=== PATIENT | male | born 1990 | race Caucasian/White ===

== ENCOUNTER 2017-10-11 10:45 | Emergency (ER) | payer SELFPAY ==
[~2017-10-11] VITALS: Ht 177.8 cm; Wt 98.0 kg
[2017-10-11 10:46] VITALS: Ht 177.8 cm; Wt 98.0 kg
[2017-10-11] MEDS ORDERED: SODIUM CHLORIDE 0.9% 1000ML 1,000 ML IV STA (11:00)
[2017-10-11] MEDS ORDERED: ALBUT/IPRATROP 3MG/0.5MG NEB 3 ML VIAL INH STA (11:00)
[2017-10-11] MEDS ORDERED: KETOROLAC TROMETHAMINE 30 MG/ML VIAL IV STA (11:00)
--- NOTE | 2017-10-11 11:09 | EMERGENCY ROOM VISIT NOTE ---
History Report prepared by Tony: Krupa Manzanares Under the Supervision of: Dr. Rodrigo Frost M.D. First contact with patient: 10:54 Chief Complaint: FEVER Stated Complaint: COUGH,FEVER,DARK MUCUS,BODY ACHES History of Present Illness The patient is a 27 year old male who presents to the Emergency Room with complaints of a worsening illness for the past week. The patient states that his symptoms began with muscle pains in his neck and down his back. He states that his neck still feels sore. His pain is worsened with movement of his head. He reports that when he gets up and starts moving around he feels dizzy and develops a slight headache. He has been having a productive cough and fevers. He states that he is "drenched in sweat" whenever he wakes up in the morning. The patient denies any significant headaches and states that this is not the worst headache of his life. He has been alternating ibuprofen, Tylenol, and cold medications for his symptoms. He has not taken anything today. Source of History: patient Onset: 1 week ago Position: neck Quality: ache Timing: worsening Modifying Factors (Worsening): movement Modifying Factors (Relieving): tylenol, ibuprofen Associated Symptoms: + fevers, + headache, + diaphoresis, + cough, + neck pain, + back pain Review of Systems See HPI for pertinent positives & negatives. A total of 10 systems reviewed and were otherwise negative. Past Medical & Surgical Medical Problems: (1) Hx of penicillin allergy Family History Cancer Diabetes mellitus Heart disease Hypertension Social History Smoking Status: Former Smoker Alcohol Use: none Current/Historical Medications No Active Prescriptions or Reported Meds Allergies Coded Allergies: Amoxicillin (Verified Allergy, Unknown, ., 10/11/17) Penicillins (Verified Allergy, Unknown, 10/11/17) Sulfa Drugs (Unverified Allergy, Unknown, SWELLING, 10/11/17) Sulfamethoxazole (Unverified Allergy, Unknown, SWELLING, 10/11/17) Sulfamethoxazole w/Trimethoprim (Verified Allergy, Unknown, ., 10/11/17) Trimethoprim (Unverified Allergy, Unknown, SWELLING, 10/11/17) Physical Exam Vital Signs Date Time Temp Pulse Resp B/P (MAP) Pulse Ox O2 Delivery O2 Flow Rate FiO2 10/11/17 13:03 37.7 93 20 134/85 98 10/11/17 12:28 93 10/11/17 11:21 120 10/11/17 11:18 98 Room Air 10/11/17 10:46 37.7 90 20 134/85 98 Physical Exam GENERAL: Awake, alert, well-appearing, in no acute distress HENT: Normocephalic, atraumatic. Oropharynx unremarkable. EYES: Normal conjunctiva. Sclera non-icteric. NECK: Supple. No nuchal rigidity. FROM. No JVD. No evidence of meningitis or encephalitis on exam. RESPIRATORY: Clear to auscultation. CARDIAC: Regular rate, normal rhythm. Extremities warm and well perfused. Pulses equal. ABDOMEN: Soft, non-distended. No tenderness to palpation. No rebound or guarding. No masses. RECTAL: Deferred. MUSCULOSKELETAL: Chest examination reveals no tenderness. The back is symmetrical on inspection without obvious abnormality. There is no CVA tenderness to palpation. No joint edema. LOWER EXTREMITIES: Calves are equal size bilaterally and non-tender. No edema. No discoloration. NEURO: Normal sensorium. No sensory or motor deficits noted. SKIN: No rash or jaundice noted. Medical Decision & Procedures ER Provider Diagnostic Interpretation: Radiology results as stated below per my review and radiologist interpretation: CHEST ONE VIEW PORTABLE CLINICAL HISTORY: Fever, cough COMPARISON STUDY: No previous studies for comparison. FINDINGS: The cardiac and mediastinal contours are normal. There is no evidence of focal pulmonary consolidation. There is no evidence of failure. No pleural effusions are visualized.[ IMPRESSION: No active disease in the chest. Electronically signed by: Ryder Blankenship M.D. 10/11/2017 11:35 AM Dictated Date/Time: 10/11/2017 11:34 AM Laboratory Results 10/11/17 11:25 Red Blood Count 4.86, Mean Corpuscular Volume 80.9, Mean Corpuscular Hemoglobin 28.8, Mean Corpuscular Hemoglobin Concent 35.6, Mean Platelet Volume 10.0, Neutrophils (%) (Auto) 56.2, Lymphocytes (%) (Auto) 25.3, Monocytes (%) (Auto) 14.9, Eosinophils (%) (Auto) 2.5, Basophils (%) (Auto) 1.0, Neutrophils # (Auto ) 3.76, Lymphocytes # (Auto) 1.70, Monocytes # (Auto) 1.00, Eosinophils # (Auto ) 0.17, Basophils # (Auto) 0.07 10/11/17 11:25 Test 10/11/17 11:25 10/11/17 11:37 10/11/17 12:06 White Blood Count 6.71 K/uL (4.8-10.8) Red Blood Count 4.86 M/uL (4.7-6.1) Hemoglobin 14.0 g/dL (14.0-18.0) Hematocrit 39.3 % (42-52) Mean Corpuscular Volume 80.9 fL (80-100) Mean Corpuscular Hemoglobin 28.8 pg (25-34) Mean Corpuscular Hemoglobin Concent 35.6 g/dl (32-36) Platelet Count 207 K/uL (130-400) Mean Platelet Volume 10.0 fL (7.4-10.4) Neutrophils (%) (Auto) 56.2 % Lymphocytes (%) (Auto) 25.3 % Monocytes (%) (Auto) 14.9 % Eosinophils (%) (Auto) 2.5 % Basophils (%) (Auto) 1.0 % Neutrophils # (Auto) 3.76 K/uL (1.4-6.5) Lymphocytes # (Auto) 1.70 K/uL (1.2-3.4) Monocytes # (Auto) 1.00 K/uL (0.11-0.59) Eosinophils # (Auto) 0.17 K/uL (0-0.5) Basophils # (Auto) 0.07 K/uL (0-0.2) RDW Standard Deviation 35.3 fL (36.4-46.3) RDW Coefficient of Variation 12.0 % (11.5-14.5) Immature Granulocyte % (Auto) 0.1 % Immature Granulocyte # (Auto) 0.01 K/uL (0.00-0.02) Anion Gap 7.0 mmol/L (3-11) Est Creatinine Clear Calc Drug Dose 161.7 ml/min Estimated GFR () 142.4 Estimated GFR (Non- 122.9 BUN/Creatinine Ratio 10.2 (10-20) Calcium Level 9.1 mg/dl (8.5-10.1) Total Bilirubin 0.6 mg/dl (0.2-1) Direct Bilirubin 0.1 mg/dl (0-0.2) Aspartate Amino Transf (AST/SGOT) 32 U/L (15-37) Alanine Aminotransferase (ALT/SGPT) 49 U/L (12-78) Alkaline Phosphatase 64 U/L (45-117) Total Creatine Kinase 112 U/L (39-308) Total Protein 8.2 gm/dl (6.4-8.2) Albumin 3.8 gm/dl (3.4-5.0) Monoscreen NEG (NEG) Influenza Type A Antigen Neg for Influ A (NEG) Influenza Type B Antigen Neg for Influ B (NEG) Urine Color YELLOW Urine Appearance CLOUDY (CLEAR) Urine pH 8.0 (4.5-7.5) Urine Specific [place] 1.025 (1.000-1.030) Urine Protein NEG (NEG) Urine Glucose (UA) NEG (NEG) Urine Ketones NEG (NEG) Urine Occult Blood NEG (NEG) Urine Nitrite NEG (NEG) Urine Bilirubin NEG (NEG) Urine Urobilinogen NEG (NEG) Urine Leukocyte Esterase NEG (NEG) Urine WBC (Auto) 1-5 /hpf (0-5) Urine RBC (Auto) 0-4 /hpf (0-4) Urine Hyaline Casts (Auto) 5-10 /lpf (0-5) Urine Epithelial Cells (Auto) >30 /lpf (0-5) Urine Bacteria (Auto) NEG (NEG) Labs reviewed by ED physician. Medications Administered Medications (Trade) Dose Ordered Sig/Lv Route Start Time Stop Time Status Last Admin Dose Admin Albuterol/ Ipratropium (Duoneb) 3 ml NOW STAT INH 10/11/17 11:00 10/11/17 11:03 DC 10/11/17 11:10 3 ML Sodium Chloride 1,000 ml @ 999 mls/hr Q1H1M STAT IV 10/11/17 11:00 10/11/17 12:00 DC 10/11/17 11:14 999 MLS/HR Ketorolac Tromethamine (Toradol Inj) 30 mg NOW STAT IV 10/11/17 11:00 10/11/17 11:03 DC 10/11/17 11:11 30 MG Acetaminophen (Tylenol Tab) 1,000 mg NOW STAT PO 10/11/17 12:09 10/11/17 12:11 DC 10/11/17 12:31 1,000 MG Albuterol (Ventolin Hfa Inhaler) 2 puffs NOW ONCE INH 10/11/17 12:15 10/11/17 12:16 DC 10/11/17 12:32 2 PUFFS Albuterol Sulfate (Ventolin 0.083% 2.5MG/3ML Neb) 2.5 mg NOW STAT INH 10/11/17 12:09 10/11/17 12:11 DC 10/11/17 12:31 2.5 MG ED Course 1054: Past medical records reviewed. The patient was evaluated in room C3. A complete history and physical examination was performed. 1100: Toradol 30 mg IV, NSS 1000 ml @ 999 mls/hr IV, DuoNeb 3 ml INH 1209: Albuterol sulfate 2.5 mg INH, Acetaminophen 1000 mg PO 1214: I reassessed the patient at this time. He is feeling better and resting comfortably. I discussed the results and treatment plan with the patient. I answered all pertaining questions that he had. He expressed understanding and verbalized agreement. The patient will be discharged home. 1215: Albuterol 2 puffs INH Medical Decision Differential diagnosis: Etiologies such as viral syndrome, otitis, pharyngitis, pneumonia, influenza, meningitis, urinary tract infection, sepsis, bacteremia, as well as others were entertained. This is a 27-year-old male who presents emergency department complaining of bilateral wheezing. Patient was given breathing treatments here in the emergency department and started on prednisone. Repeat examination revealed improvement in patient's symptoms. Patient has no evidence of pneumonia on chest x-ray and is flu swab here is negative. The patient also does not have an elevation in his white blood cell count. He was given a normal saline bolus as well as Toradol. Repeat examination revealed improvement in the patient's symptoms. I do feel that the patient is well enough to be discharged home follow-up with primary care physician. Medication Reconcilliation Current Medication List: was personally reviewed by me Blood Pressure Screening Patient's blood pressure: Normal blood pressure Impression Primary Impression: Bronchitis Scribe Attestation The scribe's documentation has been prepared under my direction and personally reviewed by me in its entirety. I confirm that the note above accurately reflects all work, treatment, procedures, and medical decision making performed by me. Departure Information Dispostion Home / Self-Care Prescriptions No Active Prescriptions or Reported Meds Referrals Adan Cortes M.D. (PCP) Forms HOME CARE DOCUMENTATION FORM, IMPORTANT VISIT INFORMATION Patient Instructions Bronchitis Acute, My [facility] Additional Instructions Use inhaler twice every 6 hours Take 1000 mg Tylenol every 6 hours Take 600 mg Ibuprofen every 6 hours You have been examined and treated today on an emergency basis only. This is not a substitute for, or an effort to provide, complete comprehensive medical care. It is impossible to recognize and treat all injuries or illnesses in a single emergency department visit. It is therefore important that you follow up closely with [facility]. Call as soon as possible for an appointment. Thank you for your time and consideration. I look forward to speaking with you again soon. Please don't hesitate to call us if you have any questions.
[2017-10-11 11:18] VITALS: O2SAT 98
[2017-10-11 11:37] LABS: BASO ABS # 0.07 K/uL (0-0.2); EOS % 2.5 %; EOS ABS # 0.17 K/uL (0-0.5); HEMATOCRIT 39.3 % (42-52); IG# 0.01 K/uL (0.00-0.02); LYMPH % 25.3 %; MEAN CELL VOLUME 80.9 fL (80-100); MEAN CORPUSCULAR HEMOGLOBIN 28.8 pg (25-34); MEAN CORPUSCULAR HGB CONC 35.6 g/dl (32-36); MONO % 14.9 %; NEUT % 56.2 %; NEUT ABS # 3.76 K/uL (1.4-6.5); PLATELET COUNT 207 K/uL (130-400); RED CELL DISTRIBUTION WIDTH SD 35.3 fL (36.4-46.3); WHITE BLOOD COUNT 6.71 K/uL (4.8-10.8)
--- NOTE | 2017-10-11 11:37 | DIAGNOSTIC IMAGING REPORT ---
CHEST ONE VIEW PORTABLE CLINICAL HISTORY: Fever, cough COMPARISON STUDY: No previous studies for comparison. FINDINGS: The cardiac and mediastinal contours are normal. There is no evidence of focal pulmonary consolidation. There is no evidence of failure. No pleural effusions are visualized.[ IMPRESSION: No active disease in the chest. Electronically signed by: Ryder Blankenship M.D. 10/11/2017 11:35 AM Dictated Date/Time: 10/11/2017 11:34 AM
[2017-10-11 11:49] LABS: ALBUMIN 3.8 gm/dl (3.4-5.0); CALCIUM 9.1 mg/dl (8.5-10.1); CREATININE 0.82 mg/dl (0.60-1.40); POTASSIUM 3.5 mmol/L (3.5-5.1)
[2017-10-11 11:51] LABS: TOTAL PROTEIN 8.2 gm/dl (6.4-8.2)
[2017-10-11 12:08] LABS: INFLUENZA B ANTIGEN Neg for Influ B (NEG)
[2017-10-11] MEDS ORDERED: ACETAMINOPHEN 500 MG TAB PO STA (12:09)
[2017-10-11] MEDS ORDERED: ALBUTEROL 0.083% NEBU SOLN 3 ML VIAL INH STA (12:09)
[2017-10-11] MEDS ORDERED: ALBUTEROL HFA 8 GM INHALER INH ONE (12:15)
[2017-10-11 13:03] VITALS: BP 134/85; PULSE 93; TEMP 37.7; O2SAT 98
[2017-10-12 14:18] LABS: EBV EARLY ANTIGEN AB < 9.00 U/ML
== END 2017-10-11 13:04 | disposition home or self-care (01) ==
LOC: C.EDB 10:47 → C.EDC 13:04
DX: J40 Bronchitis, not specified as acute or chronic (principal); Z88.0 Allergy status to penicillin; Z88.1 Allergy status to other antibiotic agents; Z88.2 Allergy status to sulfonamides; Z80.9 Family history of malignant neoplasm, unspecified; Z83.3 Family history of diabetes mellitus; Z82.49 Family history of ischemic heart disease and other diseases of the circulatory system; Z87.891 Personal history of nicotine dependence

== ENCOUNTER 2018-02-23 12:18 | Emergency (ER) | payer SELFPAY ==
[~2018-02-23] VITALS: Ht 177.8 cm; Wt 93.1 kg
[2018-02-23 12:25] VITALS: TEMP 37.3; Ht 177.8 cm; Wt 93.1 kg
[2018-02-23] MEDS ORDERED: SODIUM CHLORIDE 0.9% 1000ML 1,000 ML IV STA (12:38)
[2018-02-23] MEDS ORDERED: MAGIC SWIZZLE PO ONE (12:45)
[2018-02-23 12:54] LABS: BASO % 0.3 %; BASO ABS # 0.05 K/uL (0-0.2); EOS % 0.8 %; EOS ABS # 0.13 K/uL (0-0.5); HEMATOCRIT 42.4 % (42-52); HEMOGLOBIN 14.8 g/dL (14.0-18.0); IG# 0.04 K/uL (0.00-0.02); LYMPH % 17.8 %; LYMPH ABS # 2.89 K/uL (1.2-3.4); MEAN CELL VOLUME 82.3 fL (80-100); MEAN CORPUSCULAR HEMOGLOBIN 28.7 pg (25-34); MEAN CORPUSCULAR HGB CONC 34.9 g/dl (32-36); MEAN PLATELET VOLUME 10.2 fL (7.4-10.4); MONO % 9.2 %; MONO ABS # 1.49 K/uL (0.11-0.59); NEUT % 71.7 %; NEUT ABS # 11.61 K/uL (1.4-6.5); PLATELET COUNT 264 K/uL (130-400); RED CELL DISTRIBUTION WIDTH CV 12.3 % (11.5-14.5); RED CELL DISTRIBUTION WIDTH SD 36.6 fL (36.4-46.3); WHITE BLOOD COUNT 16.21 K/uL (4.8-10.8)
[2018-02-23 13:11] LABS: CREATININE 0.83 mg/dl (0.60-1.40); POTASSIUM 3.7 mmol/L (3.5-5.1)
[2018-02-23] MEDS ORDERED: ALUMINUM/MAGNESIUM SUSP 30 ML UDC ONE (14:00)
[2018-02-23] MEDS ORDERED: LIDOCAINE HCL 2% VISC SOLN 20 ML UDC ONE (14:01)
[2018-02-23] MEDS ORDERED: METHYLPREDNISOLONE 125 MG VIAL IV STA (14:34)
[2018-02-23] MEDS ORDERED: CEFD1CAP14 PO (14:38)
[2018-02-23] MEDS ORDERED: PRED50TA PO (14:39)
[2018-02-23] MEDS ORDERED: CEFAZOLIN SOD 1 GM VIAL ONE (15:07)
[2018-02-23] MEDS ORDERED: HEPARIN SOD (PORCINE) 1000 UNIT/ML 10 ML VIAL ONE (15:07)
[2018-02-23] MEDS ORDERED: BUPIVACAINE 0.5 % 5 MG/1 ML PF 10ML VIAL ONE (15:07)
[2018-02-23 15:22] VITALS: BP 137/87; PULSE 91; O2SAT 96
--- NOTE | 2018-02-23 18:03 | EMERGENCY ROOM VISIT NOTE ---
History Report prepared by Sobiaibpardeep: Karin Rebollar Under the Supervision of: Dr. Desmond Herrera D.O. First contact with patient: 12:32 Chief Complaint: THROAT PAIN/INJURY Stated Complaint: STREP THROAT, RASH ON ARM, FEVER History of Present Illness The patient is a 27 year old male who presents to the Emergency Room with complaints of worsening throat pain. He rates his current pain as an 8/10 in severity. He states he first developed a sore throat [place]. He produced a negative rapid strep test, but was placed on Azithromycin. He has now developed a rash along his bilateral arms. He denies any fevers above 100.4 degrees. He denies ever having mononucleosis before. Patient has no complaints including no chest pain, shortness breath, nausea vomiting or diarrhea. Source of History: patient Onset: February 16 Position: throat Symptom Intensity: 8/10 Timing: worsening Modifying Factors (Relieving): other (Azithromycin) Associated Symptoms: + rash (bilateral arms), No fevers Review of Systems See HPI for pertinent positives & negatives. A total of 10 systems reviewed and were otherwise negative. Past Medical & Surgical Medical Problems: (1) Hx of penicillin allergy Family History Cancer Diabetes mellitus Heart disease Hypertension Social History Smoking Status: Current Some Day Smoker Alcohol Use: none Drug Use: none Marital Status: single Housing Status: lives with family Occupation Status: employed Current/Historical Medications Scheduled Cefdinir (Omnicef), 300 MG PO Q12H Prednisone (Prednisone), 50 MG PO DAILY Allergies Coded Allergies: Amoxicillin (Verified Allergy, Unknown, ., 02/23/18) Penicillins (Verified Allergy, Unknown, 02/23/18) Sulfa Drugs (Unverified Allergy, Unknown, SWELLING, 02/23/18) Sulfamethoxazole (Unverified Allergy, Unknown, SWELLING, 02/23/18) Sulfamethoxazole w/Trimethoprim (Verified Allergy, Unknown, ., 02/23/18) Trimethoprim (Unverified Allergy, Unknown, SWELLING, 02/23/18) Prednisone (Unverified Adverse Reaction, Intermediate, "MAKES ME CRAZY", ) Physical Exam Vital Signs Date Time Temp Pulse Resp B/P (MAP) Pulse Ox O2 Delivery O2 Flow Rate FiO2 02/23/18 15:22 91 18 137/87 96 Room Air 02/23/18 14:47 96 18 119/62 100 Room Air 02/23/18 14:07 82 18 115/76 98 Room Air 02/23/18 12:31 98 Room Air 02/23/18 12:25 37.3 96 18 132/75 97 Room Air Physical Exam GENERAL: Sitting up in bed, alert, well appearing, well nourished, no distress, non-toxic EYE EXAM: normal conjunctiva. OROPHARYNX: Posterior oropharynx with exudates bilaterally, no swelling below the tongue, uvula is midline, no deviation, no erythema, lips, buccal mucosa, and tongue normal and mucous membranes are dry NECK: supple, no nuchal rigidity, posterior lymphadenopathy, positive anterior cervical lymphadenopathy, non-tender LUNGS: Clear to auscultation. Normal chest wall mechanics HEART: no murmurs, S1 normal and S2 normal ABDOMEN: abdomen soft, non-tender, normo-active bowel sounds, no masses, no rebound or guarding. SKIN: Macular papular rash, blanches, on the palmar surface of bilateral humerus , no petechiae, negative Nikolsky UPPER EXTREMITIES: upper extremities are grossly normal. LOWER EXTREMITIES: No pitting edema. NEURO EXAM: Normal sensorium, cranial nerves II-XII grossly intact, normal speech, no gross weakness of arms, no gross weakness of legs. Gross sensation intact. Medical Decision & Procedures Laboratory Results 02/23/18 12:45 Red Blood Count 5.15, Mean Corpuscular Volume 82.3, Mean Corpuscular Hemoglobin 28.7, Mean Corpuscular Hemoglobin Concent 34.9, Mean Platelet Volume 10.2, Neutrophils (%) (Auto) 71.7, Lymphocytes (%) (Auto) 17.8, Monocytes (%) (Auto) 9.2, Eosinophils (%) (Auto) 0.8, Basophils (%) (Auto) 0.3, Neutrophils # (Auto) 11.61, Lymphocytes # (Auto) 2.89, Monocytes # (Auto) 1.49, Eosinophils # (Auto) 0.13, Basophils # (Auto) 0.05 02/23/18 12:45 Test 02/23/18 12:45 White Blood Count 16.21 K/uL (4.8-10.8) Red Blood Count 5.15 M/uL (4.7-6.1) Hemoglobin 14.8 g/dL (14.0-18.0) Hematocrit 42.4 % (42-52) Mean Corpuscular Volume 82.3 fL (80-100) Mean Corpuscular Hemoglobin 28.7 pg (25-34) Mean Corpuscular Hemoglobin Concent 34.9 g/dl (32-36) Platelet Count 264 K/uL (130-400) Mean Platelet Volume 10.2 fL (7.4-10.4) Neutrophils (%) (Auto) 71.7 % Lymphocytes (%) (Auto) 17.8 % Monocytes (%) (Auto) 9.2 % Eosinophils (%) (Auto) 0.8 % Basophils (%) (Auto) 0.3 % Neutrophils # (Auto) 11.61 K/uL (1.4-6.5) Lymphocytes # (Auto) 2.89 K/uL (1.2-3.4) Monocytes # (Auto) 1.49 K/uL (0.11-0.59) Eosinophils # (Auto) 0.13 K/uL (0-0.5) Basophils # (Auto) 0.05 K/uL (0-0.2) RDW Standard Deviation 36.6 fL (36.4-46.3) RDW Coefficient of Variation 12.3 % (11.5-14.5) Immature Granulocyte % (Auto) 0.2 % Immature Granulocyte # (Auto) 0.04 K/uL (0.00-0.02) Anion Gap 6.0 mmol/L (3-11) Est Creatinine Clear Calc Drug Dose 156.0 ml/min Estimated GFR () 141.7 Estimated GFR (Non- 122.3 BUN/Creatinine Ratio 12.0 (10-20) Calcium Level 9.0 mg/dl (8.5-10.1) Monoscreen NEG (NEG) Laboratory results per my review. Medications Administered Medications (Trade) Dose Ordered Sig/Lv Route Start Time Stop Time Status Last Admin Dose Admin Sodium Chloride 1,000 ml @ 999 mls/hr Q1H1M STAT IV 02/23/18 12:38 02/23/18 13:38 DC 02/23/18 12:38 999 MLS/HR Al Hydroxide/Mg Hydroxide (Maalox Susp) 30 ml STK-MED ONCE .ROUTE 02/23/18 14:00 02/23/18 14:01 DC 02/23/18 14:00 30 ML Diphenhydramine HCl (Benadryl Syrup) 25 mg STK-MED ONCE .ROUTE 02/23/18 14:01 02/23/18 14:02 DC 02/23/18 14:01 25 MG Lidocaine HCl (Viscous Lidocaine 2% Soln) 20 ml STK-MED ONCE .ROUTE 02/23/18 14:01 02/23/18 14:02 DC 02/23/18 14:01 1.25 ML Methylprednisolone Sodium Succinate (Solu-Medrol IV) 125 mg NOW STAT IV 02/23/18 14:34 02/23/18 14:35 DC 02/23/18 14:45 125 MG ED Course ED COURSE: Vital signs were reviewed and showed normal vital signs The patients medical record was reviewed The above diagnostic studies were performed and reviewed. ED treatments and interventions as stated above. 1232: The patient was evaluated in room B5. A complete history and physical examination was performed. 1238: NSS 1000 ml @ 999 mls/hr IV. 1400: Maalox Susp 30 ml PO. 1401: Lidocaine 2% 20 ml PO, Benadryl 25 mg IV. 1432: Upon reevaluation, the patient is feeling better and is ready to go home. I discussed my findings with the patient and he understands and agrees with the treatment plan. 1434: Solu-Medrol 125 mg IV. 1507: Marcaine 0.5% 30 ml PO, Ancef 1000 mg IV, Heparin 96219 units IV. Based on the patients age, coexisting illnesses, exam and lab findings the decision to treat as an outpatient was made. The patient remained stable while under my care. The patient appeared well at the time of discharge. Medical Decision Differential diagnosis includes etiologies such as viral syndrome, tonsillitis, streptococcal pharyngitis, mononucleosis, peritonsillar abscess, retropharyngeal abscess, otitis, pneumonia, influenza, as well as others were entertained. Patient is a 27-year-old male who presents the ER for fevers, sore throat and runny nose. Rash started today. No oral involvement. Negative Nikolsky. Rash does ivan without petechiae. Patient is clear tonsillitis. Has taken his a throat before in the past but elected to stop the azithromycin and place him on Omnicef for tonsillitis. Patient was given steroids for the rash. CBC shows a mild leukocytosis. BMP was unremarkable. [place] was negative. Patient was discharged follow-up with PCP as an outpatient. Discussed with Pt concerning signs and symptoms to watch out for. Pt was instructed to follow up with their PCP and discussed with the patient their option to return to the ED at anytime for persistent or worsening symptoms. The appropriate anticipatory guidance and out-patient management, including indications for return to the emergency department, were explained at length to the patient and understood. Medication Reconcilliation Current Medication List: was personally reviewed by me Blood Pressure Screening Patient's blood pressure: Normal blood pressure Blood pressure disposition: Did not require urgent referral Impression Primary Impression: Rash Additional Impression: Acute bacterial tonsillitis Scribe Attestation The scribe's documentation has been prepared under my direction and personally reviewed by me in its entirety. I confirm that the note above accurately reflects all work, treatment, procedures, and medical decision making performed by me. Departure Information Dispostion Home / Self-Care Prescriptions Prednisone (PREDNISONE) 50 Mg Tab 50 MG PO DAILY for 4 Days, TAB Prov: Desmond Herrera, DO 02/23/18 Cefdinir (Omnicef) 300 Mg Cap 300 MG PO Q12H for 9 Days, #18 CAP Prov: Desmond Herrera, DO 02/23/18 Referrals No Doctor, Assigned (PCP) Patient Instructions ED Strep Pharyngitis Mar[facility] Additional Instructions Please follow up with your primary care doctor with in the next 24 hours. Any worsening of your symptoms, please return to the ED immediately. This includes any fevers greater than 100.4, worsening pain, chest pain, shortness breath, persistent nausea, vomiting, unable to eat or drink, or any other concerning signs or symptoms from your standpoint. Please stop taking your current antibiotics and switch to Omnicef. Please take the steroids as prescribed. Any worsening of the rash, involvement of your eyes, mouth, or trouble breathing please return to ER. Problem Qualifiers
[2018-02-27 12:47] LABS: EBV EARLY ANTIGEN AB < 9.00 U/ML
== END 2018-02-23 15:50 | disposition home or self-care (01) ==
LOC: C.EDB 12:19
DX: J03.90 Acute tonsillitis, unspecified (principal); R21 Rash and other nonspecific skin eruption; F17.200 Nicotine dependence, unspecified, uncomplicated; Z88.2 Allergy status to sulfonamides; Z88.8 Allergy status to other drugs, medicaments and biological substances; Z88.0 Allergy status to penicillin